=== PATIENT | female | born 1970 | race Caucasian/White ===

== ENCOUNTER 2021-10-20 09:45 | Outpatient (CLI) | payer OTHER, SELFPAY ==
[2021-10-20 12:33] LABS: Chloride* 106 mmol/L (96-114); Potassium* 4.3 mmol/L (3.6-5.1); Sodium* 140 mmol/L (135-149)
[2021-10-20 12:36] LABS: Blood Urea Nitrogen* 15 mg/dL (7-30); Carbon Dioxide* 27 mmol/L (20-32); Creatinine* 0.7 mg/dL (0.5-1.5); Estimated Glomerular Filt Rate 105 ml/min
[2021-10-20 12:37] LABS: Calcium* 9.1 mg/dL (8.4-10.6); Glucose* 116 mg/dL (60-115)
== END 2021-10-20 09:46 | disposition home or self-care (01) ==
LOC: LKVREF 09:45
PROVIDERS: PCP Physician Assistant Medical; Visit Provider Physician Assistant Medical
DX: I10 Essential (primary) hypertension (principal)
CPT/HCPCS: 80048

== ENCOUNTER 2021-11-14 09:43 | Outpatient (CLI) | payer OTHER, SELFPAY | END 2021-11-14 09:44 | disposition home or self-care (01) | LOC: OP CLINIC 09:44 | PROVIDERS: PCP Physician Assistant Medical; Visit Provider Surgery | DX: Z12.11 Encounter for screening for malignant neoplasm of colon (principal); K63.5 Polyp of colon | CPT/HCPCS: 45385; 88305; 99153; J2250; J3010 ==

== ENCOUNTER 2023-05-22 09:02 | Outpatient (CLI) | payer OTHER, SELFPAY | END 2023-05-22 09:03 | disposition home or self-care (01) | LOC: LKVREF 16:12 | PROVIDERS: PCP Physician Assistant Medical; Referring Provider Physician Assistant Medical; Visit Provider Physician Assistant Medical | DX: Z13.220 Encounter for screening for lipoid disorders (principal); Z13.228 Encounter for screening for other metabolic disorders; Z13.29 Encounter for screening for other suspected endocrine disorder | CPT/HCPCS: 80053; 80061; 84443 ==

== ENCOUNTER 2023-06-03 11:21 | Outpatient (CLI) | payer OTHER, SELFPAY ==
--- NOTE | 2023-06-03 11:30 | MM_ITS ---
Final Report Patient: SAMANTHA HENSON Facility:?[facility] Patient ID:?[id number] :?1970 Study:?XRay Breast Bilateral 3D W/CAD-06/03/2023 11:46:27 AM Ordering Physician:Karen Grover Final Report: BILATERAL SCREENING MAMMOGRAM WITH COMPUTER-AIDED DETECTION AND TOMOSYNTHESIS TECHNIQUE: CC and MLO views were obtained. These mammographic images have been obtained using full-field digital technique. These mammographic images were interpreted with the benefit of computer-aided detection. Breast Tomosynthesis was used in this interpretation. COMPARISON FILM: 01/02/21, 11/11/18, 06/10/17. FINDINGS: There are scattered areas of fibroglandular density. IMPRESSION: There is no radiographic evidence for malignancy. ASSESSMENT: BI-RADS Category 1: Negative RECOMMENDATION: Routine screening mammogram in 1 year. A lay language report of this examination will be provided to the patient. Jhony Shah M.D. Diagnostic Radiologist [email or web address] DSM/sp R& Transcribed: 5:10 p.m. SP/Dictated by: Johny Shah MD @ 06/03/2023 12:05:00 PM SP/Dictated by: Johny Shah MD @ 06/03/2023 12:05:00 PM (Electronic Signature)
== END 2023-06-03 11:22 | disposition home or self-care (01) ==
LOC: MAMMO 11:21
PROVIDERS: PCP Physician Assistant Medical; Visit Provider Physician Assistant Medical
DX: Z12.31 Encounter for screening mammogram for malignant neoplasm of breast (principal)
CPT/HCPCS: 77063; 77067

== ENCOUNTER 2024-02-03 13:37 | Outpatient (CLI) | payer OTHER, SELFPAY ==
[2024-02-07 05:17] LABS: HPV Source Cervix; HPV, High Risk by TMA Not Detected
== END 2024-02-03 13:38 | disposition home or self-care (01) ==
PROVIDERS: PCP Physician Assistant Medical; Visit Provider Physician Assistant
DX: Z12.4 Encounter for screening for malignant neoplasm of cervix (principal); Z11.51 Encounter for screening for human papillomavirus (HPV)
CPT/HCPCS: 87624; 87625; 88141; 88142

== ENCOUNTER 2024-05-07 08:47 | Day surgery (SDC) | payer OTHER, SELFPAY ==
[2024-05-07] VITALS (19 sets, daily range): BP systolic 101–170; BP diastolic 53–93; PULSE 56–94; RESP 16–22; TEMP 36.2–36.9; O2SAT 92–99; BMI 21.6
--- OUTSIDE RECORDS SUMMARY | 2024-05-07 08:50 | XMS_ITS | Referral Summary ---
Author Organization [facility] Address [address] [place] [address] Care Team Providers Care E Tailer Name Role Phone Karen Saez PA-C Primary Care Provider Allergies No known active allergies Medications NO ACTIVE MEDICATIONS . Active MALARONE 250-100 MG OR TABSIndications: Counseling for travel 1 TABLETS DAILY -start 2 days prior to potential exposure and continue for 7 days after exposure 16 Tab 0 0 Active CIPROFLOXACIN TABS 500 MG ORIndications:Co unseling for travel 1 TABLET TWICE Daily for 3 days as needed for traveler's diarrhea 6 Tab 2 0 Active Active Problems Problem Noted Date Diagnosed Date CARDIOVASCULAR SCREENING; LDL GOAL LESS THAN 160 01/29/2010 Resolved Problems Problem Noted Date Diagnosed Date Resolved Date Fracture of right tibial plateau 03/03/2020 04/13/2020 Tear of medial meniscus of right knee 03/03/2020 04/13/2020 Immunizations Name Administration Dates Next Due HEPA 05/01/2010,05/10/2009 TD,PF 7+ (Tenivac) 06/30/2006 Typhoid Oral 05/10/2009 Social History Tobacco Use Types Packs/Day Years Used Date Smoking Tobacco: Never Alcohol Use Standard Drinks/Week Comments Yes 0 (1 standard drink = 0.6 oz pur e alcohol) Adolescent Education Answer Date Record ed Getting School Help Needed Not on file 01/15 Comments No Sex and Gender Information Value Date Recorded Sex Assigned at Not on file Legal Sex Female 4:50 AM MEDICAL DELIVERY TECHNICIAN Gender Identity Not on file Sexual Orientation Not on file Last Filed Vital Signs Vital Sign Reading Time Taken Comments Blood Pressure 127/76 07/23/2020 7:45 PM CDT Pulse 73 07/23/2020 7:00 PM CDT Temperature 36.4 C (97.6 F) 07/23/2020 5:53 PM CDT Respiratory Rate 18 07/23/2020 5:53 PM CDT Oxygen Saturation 100% 07/23/2020 7:45 PM CDT Inhaled Oxygen Concentration - - Weight 86.6 kg (191 lb) 05/10/2009 3:29 PM MEDICAL DELIVERY TECHNICIAN Height 170.2 cm (5' 7) 05/10/2009 3:29 PM MEDICAL DELIVERY TECHNICIAN Body Mass Index 29.91 05/10/2009 3:29 PM MEDICAL DELIVERY TECHNICIAN Plan of Treatment Not on file Insurance RISK ADMINSTRATION [facility] [employer] Care Teams E Tailer Relationship Specialty Start Date End Date Karen Saez PA-C [facility] [address] [place], [place] [id number] PCP - General Physician Command And Control Systems Integrator 03/03/20
--- OUTSIDE RECORDS SUMMARY | 2024-05-07 08:50 | XMS_ITS | Clinical Summary ---
Author Organization [facility] Address [address] [place] [address] Care Team Providers Care Spray Dry Operator Name Role Phone Karen Saez PA-C Primary [...] TD,PF 7+ (Tenivac) 06/30/2006 Typhoid Oral 05/10/2009 Family History Medical History Relation Comments Cerebrovascular Disease Mother Relation Status Comments Father Alive Mother Paternal Grandfather Alive Paternal Grandmother Alive Social History Tobacco Use Types Packs/Day Years Used Date Smoking Tobacco: Never Alcohol Use Standard Drinks/Week Comments Yes 0 (1 standard drink = 0.6 oz pur e alcohol) Adolescent Education Answer Date Record ed Getting School Help Needed Not on file 01/15 Comments No Sex and Gender Information Value Date Recorded Sex Assigned at Not on file Legal Sex Female 4:50 AM CLINICAL RESEARCH NURSE COORDINATOR Gender Identity Not on file Sexual Orientation [...] 86.6 kg (191 lb) 05/10/2009 3:29 PM CLINICAL RESEARCH NURSE COORDINATOR Height 170.2 cm (5' 7) 05/10/2009 3:29 PM CLINICAL RESEARCH NURSE COORDINATOR Body Mass Index 29.91 05/10/2009 3:29 PM CLINICAL RESEARCH NURSE COORDINATOR Plan of Treatment Not on file Insurance WC RISK ADMINSTRATION [facility] [place] [phone] Care Teams Spray Dry Operator Relationship Specialty Start Date End Date Karen Saez PA-C [facility] [address] [place] [address] PCP - General Physician Bottling Line Attendant 03/03/20
--- OUTSIDE RECORDS SUMMARY | 2024-05-07 08:50 | XMS_ITS | Clinical Summary ---
Author Organization [employer] [facility] Address [place], [place] [address] Care Team Providers Care Header Up Name Role Phone Staff, Other Clinical Primary Care Provider Unav ailable Allergies No known active allergies Medications levonorgestrel intrauterine device (MIRENA) 20 mcg/24 hr (5 years) IUD Inject 1 Each intrauterin e. 09/14/2015 Active Active Problems Problem Noted Date Diagnosed Date Migraines Overview (05/01/2016): 1-2 year Immunizations Name Administration Dates Next Due Tdap 05/01/2016 Family History Medical History Relation Name Comments Graves' disease Father Stroke Mother Cancer-prostate Paternal Grandfather Relation Name Status Comments Father Mother fro m stroke Paternal Grandfather Social History Tobacco Use Types Packs/Day Years Used Date Smoking Tobacco: Never Smokeless Tobacco: Never Tobacco Cessation:Counseling Given: Yes Alcohol Use Standard Drinks/Week Comments Yes 0 (1 standard drink = 0.6 oz pur e alcohol) Occasional Comments No Sex and Gender Information Value Date Recorded Sex Assigned at Not on file Legal Sex Female 5:39 AM TUBE REPAIRER Gender Identity Not on file Sexual Orientation Not on file Obstetrics History Last Filed Vital Signs Vital Sign Reading Time Taken Comments Blood Pressure 104/70 06/13/2016 3:09 PM CDT Pulse 72 06/13/2016 3:09 PM CDT Temperature 36.4 C (97.6 F) 06/13/2016 3:09 PM CDT Respiratory Rate - - Oxygen Saturation - - Inhaled Oxygen Concentration - - Weight 93.7 kg (206 lb 9.6 oz) 06/13/2016 3:09 P M CDT Height 168.9 cm (5' 6.5) 05/01/2016 4:31 PM TUBE REPAIRER Body Mass Index 32.85 05/01/2016 4:31 PM TUBE REPAIRER Plan of Treatment Health Maintenance Due Date Last Done Comments HIV for age 15-65 1985 Hepatitis C screening for age 18-79 1988 Colonoscopy through age 75 08/23/2015 Mammogram for age 45-75 04/02/2017 04/02/19 17 (Completed outside of [facility]) BMI (ht and wt on same day) for age 18+ 05/01/2017 05/01/2016 Depression screening for age 12+ 05/01/2017 05/01/19 17 Pap test for age 21-65 06/10/2020 8, 06/10/2017, 04/01/2014 (Completed outside of [facility]) Pneumococcal series for age 50+ (1 of 1 - PCV) 2020 Zoster (shingles) series for age 50+ (1 of 2) 2020 Lipids for age 45-75 06/05/2021 06/05/2016 COVID-19 vaccine series (2023- season) 2023 Influenza for age 50-64 12/01/2023 Tetanus booster 05/01/2026 05/01/2016 Tdap Completed 05/01/2016 Procedures Procedure Name Priority Date/Time Associated Diagnosis Comments BODY SHOP SUPERVISOR THIN PREP PAP SCREEN IMAGED Routine 06/10/2017 1:15 PM CDT LIPID PANEL W REFLEX MEASURED LDL Routine 06/05/2016 7:24 AM TUBE REPAIRER Annual physical exam from Last 3 Months or Most Recently Relevant to Health Maintenance Results * BODY SHOP SUPERVISOR THIN PREP PAP SCREEN IMAGED (06/10/2017 1:15 PM CDT) Case Report Gynecologic Cytology Report Case: [id number] Authorizing Provider: Tanya Kelly PA-C Collected: 06/10/2017 1315 First Screen: Kia Lam Received: 06/17/2017 0722 Specimen: BODY SHOP SUPERVISOR ThinPrep Vial Screening, Cervical/Vaginal 06/20/2017 3:04 PM CDT [facility] INTERPRETATION/ RESULT NEGATIVE FOR INTRAEPITHELIAL LESION OR MALIGNANCY (NIL) (none) 06/20/2017 3:04 PM CDT [facility] IMEN ADEQUACY Satisfactory for evaluation No endocervical component seen 06/20/2017 3:04 PM CDT [facility] HPV REQUEST HPV and PAP 06/20/2017 3:04 PM CDT [facility] Last Pap Date 06/20/2017 3:04 PM CDT [facility] Comment:2011 Last Pap Result 8 3:04 PM CDT [facility] Comment:neg Menstrual Status Hormonally Suppressed 06/20/2017 3:04 PM CDT [facility] Comment:IUD Automated Review Successful 06/20/2017 3:04 PM CDT [facility] Comment:Specimen processed s uccessfully by automated pickers material handlers device, [employer] Corporation[employer] Imaging System, [employer] ANCILLARY TESTING BODY SHOP SUPERVISOR HPV Ordered, Please see separate report 06/20/2017 3:04 PM CDT [facility] Note The pap test is a screening technique, not a diagnostic procedure. It is used primarily to screen for squamous cancers and precursor lesions. Published studies have shown that it is subject to both false negative and false positive results. The pap test should not be used as the sole means to diagnose or exclude pre-malignant and malignant lesions. Interpreted at [facility] (Central Lab, [facility], [facility], [facility], [facility], [facility], Formerly [facility]) 06/20/2017 3:04 PM CDT [facility] Other (Cervical/Vagina l) 06/10/2017 1:15 PM CDT 06/17/2017 7:22 AM CDT june L Robin CHENG PATHOLOGY/CYTOLOGY Final R esult [facility] [address] [place] [address], [place] * LIPID PANEL W REFLEX MEASURED LDL (06/05/2016 7:24 AM TUBE REPAIRER) CHOLESTEROL,TOTAL 147 100 - 199 mg/dL 06/05/2016 1:15 PM TUBE REPAIRER [facility] TRIGLYCERIDES 125 <150 mg/dL 06/05/2016 1:15 PM TUBE REPAIRER [facility] HDL CHOLESTEROL 44 >40 mg/dL 7 1:15 PM TUBE REPAIRER [facility] NON-HDL CHOLESTEROL 103 <145 mg/dl 06/05/2016 1:15 PM TUBE REPAIRER [facility] CHOL/HDL RATIO 3.34 <4.50 06/05/2016 1:15 PM TUBE REPAIRER [facility] LDL CHOLESTEROL 78 <=130 mg/dL 06/05/2016 1:15 PM TUBE REPAIRER [facility] PATIENT STATUS FASTING 06/05/2016 1:15 PM TUBE REPAIRER [facility] Blood BLOOD SPECIMEN / Unknown Venipuncture / Unknown 06/05/2016 7:24 AM TUBE REPAIRER 06/05/2016 7:24 AM TUBE REPAIRER us Wilfred Selby MD CHEMISTRY Final Res ult [facility] [address] [place] [address], [place] from Last 3 Months or Most Recently Relevant to Health Maintenance Care Teams Header Up Relationship Specialty Start Date End Date Staff, Other Clinical . PCP - General 11/22/07
--- NOTE | 2024-05-07 08:56 | ED.ABDPAIN ---
HPI - Abdominal Pain General Time Seen by Provider: 08:56 Date Seen: 05/07/24 Chief Complaint: Abdominal Pain Stated Complaint: abdominal pain/nausea Time Seen by Provider: 05/07/24 08:55 Source: patient and RN notes reviewed Mode of arrival: ambulatory Limitations: no limitations History of Present Illness HPI narrative: This 53-year-old female is coming in with right-sided abdominal pain starting around 2-3 a.m. this morning. She states she has not slept much overnight since this started. She did not feel well last night around 8:29 p.m.. She felt a sharp burst nap type sensation in her abdomen around 2:00 a.m.. She is worried this could be something to do with her appendix. She has a remote history of cholecystectomy in 2008 but no other abdominal surgeries. She is feeling bloated. She feels a little gassy, she has had a little loose stools but small amounts. Nausea comes in waves. Right now she states she does not need anything for pain or nausea. She denies any urinary symptoms with this. She is aware that her dad had a kidney stone before, she is never had any kidney stone issues. She is not aware of anyone with appendicitis. She has felt warm or feverish but no actual temperature. MD elicited complaint: abdominal pain Related Data Home Medications ?Medication ?Instructions ?Recorded ?Confirmed Multi vitamin PO 10/30/21 03/11/24 fluticasone propionate 50 1 intranasal DAILY 10/30/21 03/11/24 mcg/actuation nasal spray,suspension levonorgestrel 1 intrauterine ONCE 10/30/21 03/11/24 Previous Rx's ?Medication ?Instructions ?Recorded lisinopril 20 mg tablet 20 mg PO QDAY #90 tabs 04/06/24 hydrocodone 5 mg-acetaminophen 325 1 tab PO Q6H PRN pain #15 tabs 05/07/24 mg tablet sennosides 8.6 mg capsule (senna) 8.6 mg PO DAILY PRN constipation 05/07/24 #90 caps Allergies Allergy/AdvReac Type Severity Reaction Status Date / Time No Known Allergies Allergy Verified 03/11/24 09:31 Review of Systems Status of ROS Reports: 6 or more systems reviewed and unremarkable except as noted in History and below PFSH PFSH Surgical History Hx of wisdom tooth extraction ?K08.409 - Partial loss of teeth, unspecified cause, unspecified class (ICD-10) History of cholecystectomy (05/28/08) ?Z90.49 - Acquired absence of other specified parts of digestive tract (ICD-10) Family History Mother Stroke Father Thyroid disease Prostate cancer Paternal Grandfather Prostate cancer Other Graves' disease Social History Narrative: Single. No children alcohol use- consumes about 5-7 alcoholic beverages/wine at a time, not daily Never -tobacco user Smoking Status: Never smoker How often do you have a drink containing alcohol: 4 or more times a week How many standard drinks containing alcohol do you have on a typical day: 1 or 2 How often do you have six or more drinks on one occasion: Never AUDIT-C Alcohol total score: 4 Non-prescribed substance use: denies use Exam Const: Vital Signs, click to edit/add: Vital Signs - 24 hr 05/07/24 08:50 05/07/24 10:43 05/07/24 10:54 Temperature 98.2 F 97.7 F Pulse Rate Pulse Rate [Pulse Oximeter] 85 71 Respiratory Rate 16 20 Blood Pressure Blood Pressure [Ri ght Upper Arm] 170/82 H 161/93 H Pulse Oximetry 97 96 Oxygen Delivery Me thod Room Air Room Air 05/07/24 12:59 Temperature 97.1 F L Pulse Rate 57 L Pulse Rate [Pulse Oximeter] Respiratory Rate 17 Blood Pressure 105/65 Blood Pressure [Ri ght Upper Arm] Pulse Oximetry 99 Oxygen Delivery Me thod Room Air This 53-year-old female is ambulatory into the ED with normal gait. She is alert, interactive, no apparent distress. She is very pleasant. Sclera clear, conjugate gaze, speech is normal. Lungs are clear, good air entry, no wheezing or crackles. When I have her take deep breaths, she does state that she can feel that in the right side in the abdomen. She has no tachypnea, no accessory muscle use. CV regular rate and rhythm, no murmur, normal S1-S2, no S3-S4. Abdomen is soft, obese but do not appreciate distension. Bowel sounds are present. She has definite mid right abdomen to right lower quadrant tenderness on palpation. No rebound or guarding at this time but she has definite localizing tenderness. Do not feel any masses or organomegaly. Documenting provider has reviewed patient's vital signs: yes Course Course ED Course: Patient is declining any need for pain management or nausea management but will let me know if symptoms change. We are going to proceed with imaging to rule out any acute surgical abdominal issues. Appendicitis is in the differential, we did discuss other issues such as colitis. We need imaging to further differentiate. She will have a CT of her abdomen pelvis with IV contrast. Will do a full complement of labs. Reevaluation(s) Time of Reevaluation #1: 10:34 Reevaluation #1: Have updated patient that she has appendicitis, provided her a copy of her CT report. She last ate last night. She did have a bottle of water with her but has not taken any thing to drink from it. She is aware to be NPO. Will start some maintenance lactated Ringer's for her. She denies any need for pain or nausea management at this time. Consultations Consultation #1: Have left message with the OR crew for Dr. Baires. She will call back after her case is done. 11:05 A.M.: Dr. Baires is done with her surgical case, will be here to evaluate patient. She plans on OR directly, they will do antibiotics in OR. Time: 10:16 Vital Signs Vital signs: Initial Vital Signs Temperature 98.2 F 05/07/24 08:50 Temperature Source Temporal Artery Scan 05/07/24 08:50 Pulse Rate 85 05/07/24 08:50 Respiratory Rate 16 05/07/24 08:50 Blood Pressure 170/82 H 05/07/24 08:50 Blood Pressure Mean 111 H 05/07/24 08:50 Blood Pressure Position Sitting 05/07/24 08:50 Pulse Oximetry 97 05/07/24 08:50 Oxygen Delivery Method Room Air 05/07/24 08:50 Vital Signs Temperature 98.2 F 05/07/24 08:50 Pulse Rate 85 05/07/24 08:50 Respiratory Rate 16 05/07/24 08:50 Blood Pressure 170/82 H 05/07/24 08:50 Pulse Oximetry 97 05/07/24 08:50 Oxygen Delivery Method Room Air 05/07/24 08:50 Temperature 97.1 F L 05/07/24 12:59 Pulse Rate 57 L 05/07/24 12:59 Respiratory Rate 17 05/07/24 12:59 Blood Pressure 105/65 05/07/24 12:59 Pulse Oximetry 99 05/07/24 12:59 Oxygen Delivery Method Room Air 05/07/24 12:59 Medications Administered Medications: Generic Name Dose Route Start Last Admin Trade Name Freq PRN Reason Stop Dose Admin Lactated Ringer's 1,000 mls @ 125 mls/hr 05/07/24 10:35 05/07/24 10:43 Lactated Ringers 1000 Ml IV 125 mls/hr .Q8H CYRUS Administration Discontinued Medications Generic Name Dose Route Start Last Admin Trade Name Freq PRN Reason Stop Dose Admin Bupivacaine HCl 30 ml 05/07/24 12:30 05/07/24 12:00 Bupivacaine 0.25% 30 Ml INJECTION 05/07/24 12:31 20 ml ONCE ONE Administration MDM - Abdominal Pain Lab Data Attestation: I reviewed the patient's lab results. Labs: Lab Results 05/07/24 05/07/24 Range/Units 09:00 09:22 WBC 13.85 H (4.50-11.00) K/uL RBC 4.64 (4.00-5.20) m/uL Hgb 14.8 (12.0-16.0) gm/dL Hct 43.1 (33.0-51.0) % MCV 93 (80-100) fL MCH 32 (26-34) pg MCHC 34 (32-36) gm/dL RDW Coeff of Prateek 12.5 (11.5-15.5) % Plt Count 233 (140-440) K/uL Neut % (Auto) 84.6 H (42.0-72.0) % Lymph % (Auto) 8.2 L (20-44) % [place] % (Auto) 6.7 (0.0-11.0) % Eos % (Auto) 0.1 (0.0-7.0) % Baso % (Auto) 0.2 (0.0-3.0) % Neut # (Auto) 11.70 H (1.7-7.0) K/uL Lymph # (Auto) 1.10 (0.90-2.90) K/uL [place] # (Auto) 0.90 (0.00-0.90) K/UL Eos # (Auto) 0.00 (0.00-0.50) K/uL Baso # (Auto) 0.00 (0.00-0.30) K/uL Abs Immat Gran (auto) 0.00 (0.00-0.30) K/uL Imm/Tot Granulo (auto) 0.2 % Sodium 133 L (135-149) mmol/L Potassium 4.1 (3.6-5.1) mmol/L Chloride 100 (96-114) mmol/L Carbon Dioxide 23 (20-32) mmol/L Anion Gap 10 (7-15) mEq/L BUN 10 (7-30) mg/dL Creatinine 0.5 (0.5-1.5) mg/dL Estimated Creat Clear 121.81 Estimated GFR 112 ml/min Glucose 179 H (60-115) mg/dL Lactate 1.6 (0.5-1.9) mmol/L Calcium 8.6 (8.4-10.6) mg/dL Total Bilirubin 0.7 (0.1-1.5) mg/dL Direct Bilirubin 0.2 (0.0-0.5) mg/dL AST 27 (12-35) U/L ALT 54 H (4-35) U/L Alkaline Phosphatase 72 (40-150) U/L C-Reactive Protein 1.8 H (0.5-1.0) mg/dL Total Protein 7.2 (6.0-8.3) g/dL Albumin 4.3 (3.3-5.0) g/dL Urine Color Dark yellow (Yellow) Urine Appearance Clear (Clear) Urine pH 6.5 (5.0-8.5) Ur Specific [place] 1.020 (1.000-1.030) Urine Protein 1+ A (Negative) Urine Glucose (UA) Negative (Negative) Urine Ketones Negative (Negative) Urine Blood 1+ A (Negative) Urine Nitrite Negative (Negative) Urine Bilirubin Negative (Negative) Urine Urobilinogen 0.2 (0.2-1.0) Ur Leukocyte Esterase Negative (Negative) Urine RBC 0-2 (0-2) Urine WBC 0-2 (0-5) Ur Squamous Epith Cells Few (None-Few) Urine Bacteria Few A (None) Imaging Data CT scan - abdomen: Attestation: I have reviewed the pertinent imaging results. My impression: Did visualize patient's CT believe she has acute appendicitis, see appendicolith. There is fat stranding. Await Radiology over-read. Radiologist's impression: Patient: SAMANTHA HENSON Facility:?[facility] Patient ID:?[id number] Site Patient ID:?[id number]. Site :?1970 Study:?CT-Abdomen/Pelvis W/ 66CC ISOVUE 370-05/07/2024 10:08:07 AM Ordering Physician:Kiana Osman Final Report: INDICATION: R SIDED ABD PAIN, HX S/P KRIS TECHNIQUE: CT of the abdomen and pelvis was obtained with 66 mL of Isovue 370 intravenous contrast. Please note that all CT scans at this facility use dose modulation, iterative reconstruction, and/or weight-based dosing when appropriate to reduce radiation dose to as low as reasonably achievable. COMPARISON: None. FINDINGS: Lower thorax: Mild bilateral dependent atelectasis. Liver and biliary tree: Mild hepatic steatosis. Gallbladder: Status post cholecystectomy. Spleen: Normal. Pancreas: Mild fatty atrophy. Adrenal glands: Normal. Kidneys and ureters: No hydronephrosis. No obstructing renal calculi. Subcentimeter hypoattenuating lesions are too small to characterize and are favored to represent cysts. Gastrointestinal tract: Moderate stool burden. Dilated and hyperenhancing appendix measuring up to 1.3 centimeter (2/101). Likely appendicoliths within the lumen measuring up to 0.6 centimeter (2/105). No evidence of bowel obstruction. Peritoneal cavity: Moderate fat stranding in the right lower quadrant of the abdomen. Bladder: Normal. Pelvic organs: Intrauterine device is seen within the uterus. Vasculature: Normal. Lymph nodes: Nonspecific mildly prominent subcentimeter lymph nodes are favored to be reactive. Abdominal wall: Trace fat containing periumbilical hernia. Musculoskeletal: Mild degenerative changes of the visualized spine. Mild degenerative changes of the bilateral hips. IMPRESSION: 1. Dilated and hyperenhancing appendix measuring up to 1.3 centimeter with surrounding fat stranding. Likely appendicoliths within the lumen measuring up to 0.6 centimeter. Findings are compatible with acute appendicitis. No drainable fluid collection is seen. 2. Mild hepatic steatosis. Please note that all CT scans at this facility use dose modulation, iterative reconstruction, and/or weight-based dosing when appropriate to reduce radiation dose to as low as reasonably achievable. Dictated by Morgan Dozier MD @ 05/07/2024 10:21:17 AM (Electronic Signature) Discharge Plan Discharge Clinical Impression: Acute appendicitis Activity Level: No strenuous activity Activity Detail: Activity as tolerated. Avoid strenuous activity. No lifting greater than 20 lb for 2 weeks. Discharge Diet: Regular
[2024-05-07 09:06] LABS: Appearance Urine Clear (Clear); Bilirubin Urine Negative (Negative); Blood Urine 1+ (Negative); Color Urine Dark yellow (Yellow); Glucose Urine Negative (Negative); Ketones Urine Negative (Negative); Leukocyte Esterase Urine Negative (Negative); Nitrite Urine Negative (Negative); Protein Urine 1+ (Negative); Urobilinogen Urine 0.2 (0.2-1.0); pH Urine 6.5 (5.0-8.5)
[2024-05-07 09:29] LABS: RBC Urine 0-2 (0-2)
[2024-05-07 09:30] LABS: Bacteria Urine Few; Squamous Epithelial Cell Urine Few (None-Few); WBC Urine 0-2 (0-5)
[2024-05-07 09:32] LABS: Lactate* 1.6 mmol/L (0.5-1.9)
--- OUTSIDE RECORDS SUMMARY | 2024-05-07 09:34 | XMS_ITS | Clinical Summary ---
Author Organization [facility] Address [address] [place] [address] Care Team Providers Care Anthropologist Physical Name Role Phone Karen Saez PA-C Primary [...] on file Legal Sex Female 4:50 AM SUBSORTER Gender Identity Not on file Sexual Orientation [...] 86.6 kg (191 lb) 05/10/2009 3:29 PM SUBSORTER Height 170.2 cm (5' 7) 05/10/2009 3:29 PM SUBSORTER Body Mass Index 29.91 05/10/2009 3:29 PM SUBSORTER Plan of Treatment Not on file Insurance WC RISK ADMINSTRATION [facility] [employer] Care Teams Anthropologist Physical Relationship Specialty Start Date End Date Karen Saez PA-C [facility] [address] [place] [address] PCP - General Physician Order Clerk 03/03/20
--- OUTSIDE RECORDS SUMMARY | 2024-05-07 09:34 | XMS_ITS | Clinical Summary ---
Author Organization [facility] Address [place], [place] [address] Care Team Providers Care Logging Specialist Name Role Phone Staff, Other Clinical Primary [...] on file Legal Sex Female 5:39 AM VACUUM TANK TENDER Gender Identity Not on file Sexual Orientation [...] 168.9 cm (5' 6.5) 05/01/2016 4:31 PM VACUUM TANK TENDER Body Mass Index 32.85 05/01/2016 4:31 PM VACUUM TANK TENDER Plan of Treatment Health Maintenance Due Date Last Done Comments HIV for age 15-65 1985 Hepatitis C screening for age 18-79 1988 Colonoscopy through age 75 08/23/2015 Mammogram for age 45-75 04/02/2017 04/02/19 17 (Completed outside of [place]) BMI (ht and wt on same day) for age 18+ 05/01/2017 05/01/2016 Depression screening for age 12+ 05/01/2017 05/01/19 17 Pap test for age 21-65 06/10/2020 8, 06/10/2017, 04/01/2014 (Completed outside of [facility] [place]) Pneumococcal series for age 50+ (1 of 1 - PCV) 2020 Zoster (shingles) series for age 50+ (1 of 2) 2020 Lipids for age 45-75 06/05/2021 06/05/2016 COVID-19 vaccine series (2023- season) 2023 Influenza for age 50-64 12/01/2023 Tetanus booster 05/01/2026 05/01/2016 Tdap Completed 05/01/2016 Procedures Procedure Name Priority Date/Time Associated Diagnosis Comments ACCORDION MAKER THIN PREP PAP SCREEN IMAGED Routine 06/10/2017 1:15 PM CDT LIPID PANEL W REFLEX MEASURED LDL Routine 06/05/2016 7:24 AM VACUUM TANK TENDER Annual physical exam from Last 3 Months or Most Recently Relevant to Health Maintenance Results * ACCORDION MAKER THIN PREP PAP SCREEN IMAGED (06/10/2017 1:15 PM CDT) Case Report Gynecologic Cytology Report Case: [id number] Authorizing Provider: Tanya Kelly PA-C Collected: 06/10/2017 1315 First Screen: Kia Lam Received: 06/17/2017 0722 Specimen: ACCORDION MAKER ThinPrep Vial Screening, Cervical/Vaginal 06/20/2017 3:04 PM CDT [facility] ENTRAL LABORATORY INTERPRETATION/ RESULT NEGATIVE FOR INTRAEPITHELIAL LESION OR MALIGNANCY (NIL) (none) 06/20/2017 3:04 PM CDT [facility] IMEN ADEQUACY Satisfactory for evaluation No endocervical component seen 06/20/2017 3:04 PM CDT [facility] HPV REQUEST HPV and PAP 06/20/2017 3:04 PM CDT [facility] Last Pap Date 06/20/2017 3:04 PM CDT [facility] Comment:2011 Last Pap Result 8 3:04 PM CDT [facility] Comment:neg Menstrual Status Hormonally Suppressed 06/20/2017 3:04 PM CDT [facility] Comment:IUD Automated Review Successful 06/20/2017 3:04 PM CDT [facility] Comment:Specimen processed s uccessfully by automated print designer device, [employer] PartnersPrep Imaging System, [employer] ANCILLARY TESTING ACCORDION MAKER HPV Ordered, Please see separate report 06/20/2017 3:04 PM CDT [facility] Note The pap test is a screening technique, not a diagnostic procedure. It is used primarily to screen for squamous cancers and precursor lesions. Published studies have shown that it is subject to both false negative and false positive results. The pap test should not be used as the sole means to diagnose or exclude pre-malignant and malignant lesions. Interpreted at [facility] (Central Lab, [employer], [facility], [facility], [facility], [facility], [facility]) 06/20/2017 3:04 PM CDT [facility] Other (Cervical/Vagina l) 06/10/2017 1:15 PM CDT 06/17/2017 7:22 AM CDT june L Robin CHENG PATHOLOGY/CYTOLOGY Final R esult [facility] [address] [place] [address], [place] * LIPID PANEL W REFLEX MEASURED LDL (06/05/2016 7:24 AM VACUUM TANK TENDER) CHOLESTEROL,TOTAL 147 100 - 199 mg/dL 06/05/2016 1:15 PM VACUUM TANK TENDER [facility] TRAL LABORATORY TRIGLYCERIDES 125 <150 mg/dL 06/05/2016 1:15 PM VACUUM TANK TENDER [facility] TRAL LABORATORY HDL CHOLESTEROL 44 >40 mg/dL 7 1:15 PM VACUUM TANK TENDER [facility] TRAL LABORATORY NON-HDL CHOLESTEROL 103 <145 mg/dl 06/05/2016 1:15 PM VACUUM TANK TENDER [facility] TRAL LABORATORY CHOL/HDL RATIO 3.34 <4.50 06/05/2016 1:15 PM VACUUM TANK TENDER [facility] TRAL LABORATORY LDL CHOLESTEROL 78 <=130 mg/dL 06/05/2016 1:15 PM VACUUM TANK TENDER [facility] TRAL LABORATORY PATIENT STATUS FASTING 06/05/2016 1:15 PM VACUUM TANK TENDER [facility] TRAL LABORATORY Blood BLOOD SPECIMEN / Unknown Venipuncture / Unknown 06/05/2016 7:24 AM VACUUM TANK TENDER 06/05/2016 7:24 AM VACUUM TANK TENDER us Wilfred Selby MD CHEMISTRY Final Res ult [facility] [address] [place] [address], [place] from Last 3 Months or Most Recently Relevant to Health Maintenance Care Teams Logging Specialist Relationship Specialty Start Date End Date Staff, Other Clinical . PCP - General 11/22/07
--- OUTSIDE RECORDS SUMMARY | 2024-05-07 09:34 | XMS_ITS | Referral Summary ---
Author Organization [facility] Address [address] [place] [address] Care Team Providers Care Drawing Instructor Name Role Phone Karen Saez PA-C Primary [...] on file Legal Sex Female 4:50 AM BRANCH LENDING MANAGER Gender Identity Not on file Sexual Orientation [...] 86.6 kg (191 lb) 05/10/2009 3:29 PM BRANCH LENDING MANAGER Height 170.2 cm (5' 7) 05/10/2009 3:29 PM BRANCH LENDING MANAGER Body Mass Index 29.91 05/10/2009 3:29 PM BRANCH LENDING MANAGER Plan of Treatment Not on file Insurance RISK ADMINSTRATION [facility] [employer] Care Teams Drawing Instructor Relationship Specialty Start Date End Date Karen Saez PA-C [facility] [address] [place], [place] [id number] PCP - General Physician Assessment Technician 03/03/20
[2024-05-07 09:37] LABS: Basophils Percent Auto 0.2 % (0.0-3.0); Eosinophils Percent Auto 0.1 % (0.0-7.0); Hematocrit 43.1 % (33.0-51.0); Hemoglobin* 14.8 gm/dL (12.0-16.0); Immature Granulocytes Pct Auto 0.2 %; Lymphocytes Percent Auto 8.2 % (20-44); Mean Corpuscular HGB Conc 34 gm/dL (32-36); Mean Corpuscular Hemoglobin 32 pg (26-34); Mean Corpuscular Volume 93 fL (80-100); Monocytes Percent Auto 6.7 % (0.0-11.0); Neutrophils Percent Auto 84.6 % (42.0-72.0); Platelet Count* 233 K/uL (140-440); RDW Coefficient of Variation % 12.5 % (11.5-15.5); Red Blood Count 4.64 m/uL (4.00-5.20); White Blood Count* 13.85 K/uL (4.50-11.00)
[2024-05-07 09:44] LABS: Slide Review Reflex No
[2024-05-07 09:52] LABS: Albumin* 4.3 g/dL (3.3-5.0); Chloride* 100 mmol/L (96-114)
[2024-05-07 09:53] LABS: Potassium* 4.1 mmol/L (3.6-5.1); Sodium* 133 mmol/L (135-149)
[2024-05-07 09:55] LABS: Alkaline Phosphatase* 72 U/L (40-150); Anion Gap 10 mEq/L (7-15); Aspartate Amino Transferase* 27 U/L (12-35); Bilirubin Direct* 0.2 mg/dL (0.0-0.5); Bilirubin Total* 0.7 mg/dL (0.1-1.5); Blood Urea Nitrogen* 10 mg/dL (7-30); Carbon Dioxide* 23 mmol/L (20-32); Creatinine* 0.5 mg/dL (0.5-1.5); Est. Creatinine Clearance* 121.81; Estimated Glomerular Filt Rate 112 ml/min; Glucose* 179 mg/dL (60-115); Total Protein* 7.2 g/dL (6.0-8.3)
[2024-05-07 09:56] LABS: Alanine Aminotransferase* 54 U/L (4-35); Calcium* 8.6 mg/dL (8.4-10.6)
[2024-05-07 09:58] LABS: C Reactive Protein* 1.8 mg/dL (0.5-1.0)
[2024-05-07] MEDS: LACTATED RINGERS 1000 ML 1,000 ML 125 ML IV (10:43)
--- NOTE | 2024-05-07 11:24 | PM.GSCN ---
History of Present Illness Consult details Date Seen: 05/07/24 Consult date: 05/07/24 Narrative: Patient presented to the emergency department with right lower quadrant abdominal pain. The pain started last night around 8:00 o'clock but then increased in intensity. She has never had pain like this before. She last a yesterday for dinner. Decrease in appetite, no nausea or vomiting. Denies any fevers at home. Her abdominal surgical history is positive for . She denies any problems with anesthesia. Review of Systems Status of ROS: Reports: 10 or more systems reviewed and unremarkable except as noted in History and below [facility] Surgical History Hx of wisdom tooth extraction ?K08.409 - Partial loss of teeth, unspecified cause, unspecified class (ICD-10) History of cholecystectomy (05/28/08) ?Z90.49 - Acquired absence of other specified parts of digestive tract (ICD-10) Family History Mother Stroke Father Thyroid disease Prostate cancer Paternal Grandfather Prostate cancer Other Graves' disease Social History Narrative: Single. No children alcohol use- consumes about 5-7 alcoholic beverages/wine at a time, not daily Never -tobacco user Smoking Status: Never smoker How often do you have a drink containing alcohol: 4 or more times a week How many standard drinks containing alcohol do you have on a typical day: 1 or 2 How often do you have six or more drinks on one occasion: Never AUDIT-C Alcohol total score: 4 Non-prescribed substance use: denies use Meds Home Medications and Allergies Home Medications ?Medication ?Instructions ?Recorded ?Confirmed ?Type Multi vitamin PO 10/30/21 03/11/24 History fluticasone propionate 50 1 intranasal DAILY 10/30/21 03/11/24 History mcg/actuation nasal spray,suspension levonorgestrel 1 intrauterine ONCE 10/30/21 03/11/24 History Allergies Allergy/AdvReac Type Severity Reaction Status Date / Time No Known Allergies Allergy Verified 03/11/24 09:31 Exam Narrative: Exam Narrative: General: Alert and oriented, nontoxic Respiratory: Equal breath rise bilaterally, maintained on room air CV: Well perfused Abdomen: Soft, tender to palpation right lower quadrant with some guarding, no rebound. Const: Vital Signs, click to edit/add: Vital Signs - 24 hr 05/07/24 08:50 05/07/24 10:43 05/07/24 10:54 Temperature 98.2 F 97.7 F Pulse Rate [Pulse Oximeter] 85 71 Respiratory Rate 16 20 Blood Pressure [Ri ght Upper Arm] 170/82 H 161/93 H Pulse Oximetry 97 96 Oxygen Delivery Me thod Room Air Room Air Results Labs Labs: Abnormal lab results 05/07/24 05/07/24 Range/Units 09:00 09:22 WBC 13.85 H (4.50-11.00) K/uL Neut % (Auto) 84.6 H (42.0-72.0) % Lymph % (Auto) 8.2 L (20-44) % Neut # (Auto) 11.70 H (1.7-7.0) K/uL Sodium 133 L (135-149) mmol/L Glucose 179 H (60-115) mg/dL ALT 54 H (4-35) U/L C-Reactive Protein 1.8 H (0.5-1.0) mg/dL Urine Protein 1+ A (Negative) Urine Blood 1+ A (Negative) Urine Bacteria Few A (None) Diabetes panel 05/07/24 Range/Units 09:22 Sodium 133 L (135-149) mmol/L Potassium 4.1 (3.6-5.1) mmol/L Chloride 100 (96-114) mmol/L Carbon Dioxide 23 (20-32) mmol/L BUN 10 (7-30) mg/dL Creatinine 0.5 (0.5-1.5) mg/dL Glucose 179 H (60-115) mg/dL Calcium 8.6 (8.4-10.6) mg/dL AST 27 (12-35) U/L ALT 54 H (4-35) U/L Alkaline Phosphatase 72 (40-150) U/L Total Protein 7.2 (6.0-8.3) g/dL Albumin 4.3 (3.3-5.0) g/dL Calcium panel 05/07/24 Range/Units 09:22 Calcium 8.6 (8.4-10.6) mg/dL Albumin 4.3 (3.3-5.0) g/dL Pituitary panel 05/07/24 Range/Units 09:22 Sodium 133 L (135-149) mmol/L Potassium 4.1 (3.6-5.1) mmol/L Chloride 100 (96-114) mmol/L Carbon Dioxide 23 (20-32) mmol/L BUN 10 (7-30) mg/dL Creatinine 0.5 (0.5-1.5) mg/dL Glucose 179 H (60-115) mg/dL Calcium 8.6 (8.4-10.6) mg/dL Adrenal panel 05/07/24 Range/Units 09:22 Sodium 133 L (135-149) mmol/L Potassium 4.1 (3.6-5.1) mmol/L Chloride 100 (96-114) mmol/L Carbon Dioxide 23 (20-32) mmol/L BUN 10 (7-30) mg/dL Creatinine 0.5 (0.5-1.5) mg/dL Glucose 179 H (60-115) mg/dL Calcium 8.6 (8.4-10.6) mg/dL Total Bilirubin 0.7 (0.1-1.5) mg/dL AST 27 (12-35) U/L ALT 54 H (4-35) U/L Alkaline Phosphatase 72 (40-150) U/L Total Protein 7.2 (6.0-8.3) g/dL Albumin 4.3 (3.3-5.0) g/dL All other labs normal. Imaging Abdomen CT scan report/results: report reviewed and image reviewed Progress Note:A&P Assessment and plan (1) Acute appendicitis: Status: Acute Assessment and Plan: The patient presented with a history, exam and imaging findings consistent with acute appendicitis. I discussed the treatment options with the patient including non-surgical and surgical options. I recommended laparoscopic appendectomy. The risks of surgery were reviewed with the patient including the risks of bleeding, post-operative wound or intra-abdominal infection, injury to abdominal structures and possible conversion to an open operation. We also discussed anesthetic complications including [place], stroke, respiratory failure and blood clots. The patient voiced an understanding of our conversation, had the opportunity to ask questions, agreed to accept the risks of surgery and asked that we proceed with surgery.
--- OUTSIDE RECORDS SUMMARY | 2024-05-07 11:55 | XMS_ITS | Clinical Summary ---
Author Organization [facility] Address [place], [place] [address] Care Team Providers Care Pluck Trimmer Name Role Phone Staff, Other Clinical Primary [...] on file Legal Sex Female 5:39 AM DISTRICT MEDICAL EXAMINER Gender Identity Not on file Sexual Orientation [...] 168.9 cm (5' 6.5) 05/01/2016 4:31 PM DISTRICT MEDICAL EXAMINER Body Mass Index 32.85 05/01/2016 4:31 PM DISTRICT MEDICAL EXAMINER Plan of Treatment Health Maintenance Due Date Last Done Comments HIV for age 15-65 1985 Hepatitis C screening for age 18-79 1988 Colonoscopy through age 75 08/23/2015 Mammogram for age 45-75 04/02/2017 04/02/19 17 (Completed outside of [place]) BMI (ht and wt on same day) for age 18+ 05/01/2017 05/01/2016 Depression screening for age 12+ 05/01/2017 05/01/19 17 Pap test for age 21-65 06/10/2020 8, 06/10/2017, 04/01/2014 (Completed outside of [facility]) Pneumococcal series for age 50+ (1 of 1 - PCV) 2020 Zoster (shingles) series for age 50+ (1 of 2) 2020 Lipids for age 45-75 06/05/2021 06/05/2016 COVID-19 vaccine series (2023- season) 2023 Influenza for age 50-64 12/01/2023 Tetanus booster 05/01/2026 05/01/2016 Tdap Completed 05/01/2016 Procedures Procedure Name Priority Date/Time Associated Diagnosis Comments DULITE MACHINE BLUER THIN PREP PAP SCREEN IMAGED Routine 06/10/2017 1:15 PM CDT LIPID PANEL W REFLEX MEASURED LDL Routine 06/05/2016 7:24 AM DISTRICT MEDICAL EXAMINER Annual physical exam from Last 3 Months or Most Recently Relevant to Health Maintenance Results * DULITE MACHINE BLUER THIN PREP PAP SCREEN IMAGED (06/10/2017 1:15 PM CDT) Case Report Gynecologic Cytology Report Case: [id number] Authorizing Provider: Tanya Kelly PA-C Collected: 06/10/2017 1315 First Screen: Kia Lam Received: 06/17/2017 0722 Specimen: DULITE MACHINE BLUER ThinPrep Vial Screening, Cervical/Vaginal 06/20/2017 3:04 PM CDT [facility] ENTRAL LABORATORY INTERPRETATION/ RESULT NEGATIVE FOR INTRAEPITHELIAL LESION OR MALIGNANCY (NIL) (none) 06/20/2017 3:04 PM CDT [facility] IMEN ADEQUACY Satisfactory for evaluation No endocervical component seen 06/20/2017 3:04 PM CDT [facility] HPV REQUEST HPV and PAP 06/20/2017 3:04 PM CDT [facility] Last Pap Date 06/20/2017 3:04 PM CDT [facility] Comment:2011 Last Pap Result 8 3:04 PM CDT [facility] Comment:neg Menstrual Status Hormonally Suppressed 06/20/2017 3:04 PM CDT [facility] Comment:IUD Automated Review Successful 06/20/2017 3:04 PM CDT [facility] Comment:Specimen processed s uccessfully by automated automatic pinsetter adjuster device, [employer] Imaging System, [employer] ANCILLARY TESTING DULITE MACHINE BLUER HPV Ordered, Please see separate report 06/20/2017 3:04 PM CDT [facility] Note The pap test is a screening technique, not a diagnostic procedure. It is used primarily to screen for squamous cancers and precursor lesions. Published studies have shown that it is subject to both false negative and false positive results. The pap test should not be used as the sole means to diagnose or exclude pre-malignant and malignant lesions. Interpreted at [facility] (Central Lab, [facility], [facility], [facility], [facility], [facility], [facility]) 06/20/2017 3:04 PM CDT [facility] Other (Cervical/Vagina l) 06/10/2017 1:15 PM CDT 06/17/2017 7:22 AM CDT june L Robin CHENG PATHOLOGY/CYTOLOGY Final R esult [facility] [address] [place] [address], [place] * LIPID PANEL W REFLEX MEASURED LDL (06/05/2016 7:24 AM DISTRICT MEDICAL EXAMINER) CHOLESTEROL,TOTAL 147 100 - 199 mg/dL 06/05/2016 1:15 PM DISTRICT MEDICAL EXAMINER [facility] TRAL LABORATORY TRIGLYCERIDES 125 <150 mg/dL 06/05/2016 1:15 PM DISTRICT MEDICAL EXAMINER [facility] TRAL LABORATORY HDL CHOLESTEROL 44 >40 mg/dL 7 1:15 PM DISTRICT MEDICAL EXAMINER [facility] TRAL LABORATORY NON-HDL CHOLESTEROL 103 <145 mg/dl 06/05/2016 1:15 PM DISTRICT MEDICAL EXAMINER [facility] TRAL LABORATORY CHOL/HDL RATIO 3.34 <4.50 06/05/2016 1:15 PM DISTRICT MEDICAL EXAMINER [facility] TRAL LABORATORY LDL CHOLESTEROL 78 <=130 mg/dL 06/05/2016 1:15 PM DISTRICT MEDICAL EXAMINER [facility] TRAL LABORATORY PATIENT STATUS FASTING 06/05/2016 1:15 PM DISTRICT MEDICAL EXAMINER [facility] TRAL LABORATORY Blood BLOOD SPECIMEN / Unknown Venipuncture / Unknown 06/05/2016 7:24 AM DISTRICT MEDICAL EXAMINER 06/05/2016 7:24 AM DISTRICT MEDICAL EXAMINER us Wilfred Selby MD CHEMISTRY Final Res ult [facility] [address] [place] [address], [place] from Last 3 Months or Most Recently Relevant to Health Maintenance Care Teams Pluck Trimmer Relationship Specialty Start Date End Date Staff, Other Clinical . PCP - General 11/22/07
--- OUTSIDE RECORDS SUMMARY | 2024-05-07 11:55 | XMS_ITS | Clinical Summary ---
Author Organization [facility] Address [address] [place] [address] Care Team Providers Care Cisco Administrator Name Role Phone Karen Saez PA-C Primary [...] on file Legal Sex Female 4:50 AM CITY SUPERINTENDENT Gender Identity Not on file Sexual Orientation [...] 86.6 kg (191 lb) 05/10/2009 3:29 PM CITY SUPERINTENDENT Height 170.2 cm (5' 7) 05/10/2009 3:29 PM CITY SUPERINTENDENT Body Mass Index 29.91 05/10/2009 3:29 PM CITY SUPERINTENDENT Plan of Treatment Not on file Insurance WC RISK ADMINSTRATION [facility] [employer] Care Teams Cisco Administrator Relationship Specialty Start Date End Date Karen Saez PA-C [facility] [address] [place] [address] PCP - General Physician Parts Representative 03/03/20
--- NOTE | 2024-05-07 11:57 | W.ANESCHARGE ---
Anesthesia Charges Start Date/Time Anesthesia Start Date: 05/07/24 Anesthesia Start Time: 11:40 Stop Date/Time Anesthesia Stop Date: 05/07/24 Anesthesia Stop Time: 12:51 Summary Extremes of Age - Over 70 or under 1: MDA Coding CPT Codes CPT Codes: ANESTH SURG LOWER ABDOMEN - 31512 ([id number]) P3 - PATIENT W/SEVERE SYS DISEASE, QK - SURVEY SUPERVISOR 2-4 CNCRNT ANES PROC, QX - WATCH REPAIR PERSON SVC W/ MD MED DIRECTION Additional Codes: Summary - Extremes of Age - Over 70 or under 1: MDA ([id number])
[2024-05-07] MEDS: BUPIVACAINE 0.25% 30 ML INJECTION (12:00)
--- NOTE | 2024-05-07 12:35 | PM.GSPRC ---
Operative Note Date of procedure: 05/07/24 Pre-op diagnosis: Acute appendicitis Post-op diagnosis: Same, non perforated Type of Procedure: Laparoscopic appendectomy Indications: Patient is a 53-year-old female who presented to the emergency department with clinical workup in symptoms consistent with acute appendicitis. Risks and benefits of operative intervention were discussed at length with the patient. Risks included but was not limited to: Bleeding, infection, risk of damage to surrounding structures, possible need for additional procedures, possible need to convert to an open operation and postoperative complications such as pneumonia, pulmonary emboli or NM. All questions and concerns were addressed with the patient agreeing to proceed. Procedure Description: After discussing the risks and benefits of the procedure, the patient signed informed consent.? The operative site was marked and the patient was brought to the operating room and placed on the operating table in supine position.? Care was taken to pad the patient's pressure points.?? The patient was then intubated by anesthesia.?? The operative site was then prepped and draped in the usual sterile fashion.? A time-out was then performed. Entrance to the abdomen was obtained via a 5 mm optical trocar in the left upper quadrant. The abdomen was insufflated and briefly surveyed for any signs of injury. There were none. A 12 mm port was placed lateral to the umbilicus as well as a 5 mm port in the left lower quadrant under direct vision. The patient was then placed in Trendelenburg position with the right side up. The small bowel was gently moved out of the way and the appendix was in view. The appendix was inflamed, but no evidence of perforation. A small amount of dissection was necessary to free the appendix from the surrounding pelvic attachments. This was grasped and pulled into view. A mesenteric window was created between the base of the appendix and the mesoappendix. A cautery was used to help mobilize the cecum and adequately get to the base of the appendix. A 45 mm Endo-JOHN purple load stapler was then used to transect the appendix at its base. A 60 mm vascular load stapler was then used to take the mesoappendix. The staple lines were inspected for bleeding. There was none. The appendix was then removed from the abdomen using an Endo-Catch bag. The specimen was sent to pathology. The 12 mm port site fascia was closed with 0 Vicryl via the Radhames-Paty. All other ports were removed under direct visualization. The skin was then closed with absorbable subcuticular suture. Sterile dressings were then applied. Instrument sponge and needle counts were correct at the end of the case. The patient was then woken and transported to the PACU in stable condition. Findings: Inflamed appendix, no evidence of perforation. Consistent with acute, uncomplicated appendicitis. Anesthesia: GETA Surgeon: Eden Baires MD Estimated blood loss (mL): 5 Specimen: Appendix Condition: stable Disposition: PACU
[2024-05-07] MEDS: METOCLOPRAMIDE HCL 5 MG/ML INJ 10 MG IVP (12:53)
--- NOTE | 2024-05-07 13:01 | W.ANESCHARGE ---
Anesthesia Charges Start Date/Time Anesthesia Start Date: 05/07/24 Anesthesia Start Time: 11:40 Stop Date/Time Anesthesia Stop Date: 05/07/24 Anesthesia Stop Time: 12:51 Summary Emergency: EXTENSION EDUCATOR Coding CPT Codes CPT Codes: ANESTH SURG LOWER ABDOMEN - 69973 ([id number]) P3 - PATIENT W/SEVERE SYS DISEASE, QK - ARMOR OFFICER 2-4 CNCRNT ANES PROC, QX - EXTENSION EDUCATOR SVC W/ MD MED DIRECTION Additional Codes: Summary - Emergency: EXTENSION EDUCATOR ([id number])
[2024-05-07] MEDS: ACETAMINOPHEN 325 MG TABLET 650 MG PO (13:53)
--- NOTE | 2024-05-07 13:53 | SUR.PHASEII ---
Patient tolerating juice and crackers. Pain 6/10. Patient provided with pain relief options and she requests over the counter.
== END 2024-05-07 16:23 | disposition home or self-care (01) ==
LOC: ED 11:43 → OR 11:53
PROVIDERS: Emergency Provider Family Medicine; PCP Physician Assistant Medical; Visit Provider Surgery
PROC: 0DTJ4ZZ Resection of Appendix, Percutaneous Endoscopic Approach (ICD-10-PCS; CPT 44970; principal; 2024-05-07 11:30)
DX: K35.80 Unspecified acute appendicitis (principal); R10.31 Right lower quadrant pain
CPT/HCPCS: 44970; 00840; 36415; 74177; 80053; 81001; 82248; 83605; 85025; 86140; 87086; 88304; 99100; 99140; 99284; 99285; A9270; J0665; J1100; J1885; J2405; J2543; J2704; J2710; J2765; J3010; J7120; Q9967